=== PATIENT | female | born 1975 | race Caucasian/White ===

== ENCOUNTER 2023-07-13 10:42 | Inpatient (IN) ==
[2023-07-13 12:40] LABS: Basophils # (auto) 0.05 K/uL (0.00-0.20); Basophils % (auto) 0.6 %; Eosinophils # (auto) 0.33 K/uL (0.00-0.50); Hematocrit (blood only) 40.7 % (37.0-47.0); Immature Granulocytes # (auto) 0.02 K/uL (0.01-0.20); Immature Granulocytes % (auto) 0.2 %; Lymphocytes # (auto) 3.04 K/uL (1.20-3.40); Lymphocytes % (auto) 37.2 %; Mean Corpuscular Hemoglobin 31.5 pg (25.0-34.0); Mean Corpuscular Hgb Conc 34.4 g/dL (32.0-36.0); Mean Corpuscular Volume 91.7 fL (80.0-100.0); Mean Platelet Volume 10.5 fL (9.4-12.4); Monocytes # (auto) 0.45 K/uL (0.11-0.59); Monocytes % (auto) 5.5 %; Neutrophils # (auto) 4.28 K/uL (1.40-6.50); Neutrophils % (auto) 52.5 %; Platelet Count 258 K/uL (130-400); RDW Coefficient of Variation 12.1 % (11.5-14.5); RDW Standard Deviation 40.7 fL (36.4-46.3); Red Blood Count 4.44 M/uL (4.20-5.40); White Blood Count 8.17 K/ul (4.8-10.8)
[2023-07-13 12:54] LABS: Alanine Aminotransferase 13 U/L (7-52); Albumin Globulin Ratio 1.8 (0.9-2); Albumin Level 5.2 gm/dl (3.4-5.0); Alkaline Phosphatase 46 U/L (34-104); Anion Gap 7 (3-11); Aspartate Aminotransferase 20 U/L (13-39); BUN Creatinine Ratio 18.7 (10-20); Bilirubin,Total 0.6 mg/dl (0.2-1.0); Blood Urea Nitrogen 14 mg/dl (6-23); Calcium 9.8 mg/dl (8.6-10.3); Carbon Dioxide 28 mmol/L (21-32); Chloride 107 mmol/L (98-107); Creatinine Clr Calc Pharmacy 71.5 ml/min; Est GFR (African American) 111.6 ml/min; Est GFR (Non-African American) 96.3 ml/min; Globulin 2.9 gm/dl (2.5-4.0); Glucose 94 mg/dl (70-99(Fasting)); Potassium 3.9 mmol/L (3.5-5.1); Sodium 142 mmol/L (136-145); Total Protein 8.1 gm/dl (6.0-8.3)
[2023-07-13 12:59] LABS: Troponin I High Sensitivity 20.1 pg/ml (0-14)
[2023-07-13 13:01] LABS: Partial Thromboplastin Ratio 0.9; Partial Thromboplastin Time 24.8 Seconds (21.0-31.0); Prothrombin Time 10.5 Seconds (9.0-12.0)
--- NOTE | 2023-07-13 13:05 | XRay Report ---
XR chest 1V not portable HISTORY: Chest pressure. Chest pain, nonspecific COMPARISON: None. FINDINGS: No pneumothorax. No pleural effusions. Old, healed right lateral seventh rib fracture. No a cute fractures identified. The lungs are clear. No evidence for pulmonary edema. The heart is normal in size. IMPRESSION: No acute process. ACT 112: Negative or not required by law. Electronically signed by: Fausto Ackemran M.D. 07/13/2023 1:04 PM
[2023-07-13] MEDS ORDERED: ASPIRIN 81 MG CHEW PO STA (15:33)
--- NOTE | 2023-07-13 16:40 | Emergency Department Note ---
Impression & Plan Chest pain, rule out acute myocardial infarction ED Provider Note NAME: GARRY JANE AGE: 47 SEX: F : 1975 ARRIVES VIA: Walk-In INFORMANT: Patient, ED PROVIDER(S): Yajaira Rebolledo MD CHIEF COMPLAINT: HPI: This is a 47-year-old man presenting for chest pain. Patient states that she has a family history of early cardiac disease including both parents having MIs in their early 60s. She states that she had a stress test done in and is otherwise negative. Since past , 4 days, she has had chest pressure in her anterior chest. She does report occasional sharp sensation as well. N onpleuritic. No leg swelling. No history of hormones or blood clots in the past. She reports episodes coming in waves, occasionally she will feel poorly normal otherwise she can have episodes without relation to exertion or rest. She had an EKG done at outside facility and was sent here for further evaluation. ROS: See above HPI for pertinent positives & negatives. A total of 10 systems reviewed and were otherwise negative. PAST MEDICAL HISTORY: See Below PAST SURGICAL HISTORY: See Below FAMILY HISTORY: See Below SOCIAL HISTORY: See Below HOME MEDICATIONS: See Below ALLERGIES: See Below VITALS: See Below PHYSICAL EXAMINATION: General: resting comfortably in no acute distress Head: Normocephalic and atraumatic Eyes: Normal inspection, extraocular muscles intact, no conjunctival pallor Ear, nose, throat: Normal external exam Neck: Normal range of motion Respiratory: Patient is in no respiratory distress, lungs clear to auscultation bilaterally Cardiovascular: RRR without murmur appreciated GI: soft, nontender, no guarding or rebound Extremities: pulses intact with good cap refills, no LE pitting edema or calf tenderness Neuro: The patient awake and alert, appropriately conversive,no focal decifits Skin: Warm, dry, and intact MEDICAL DECISION MAKING: This is a 47-year-old female presenting for chest pain. Patient is a previous smoker. She has family history of early MN. Patient EKG shows normal sinus rhythm at this time without ST segment elevation changes. Patient's troponin was sent at triage showing it is slightly elevated at 20. Based on her story as well as troponin elevation, will require further work-up. Patient will be admitted to hospitalist service for ACS rule out. Triage Nursing notes reviewed. Prior medical records reviewed Vital Signs: reviewed and remarkable for no significant abnormalities Differential diagnosis: ACS, stable results of angina ER treatment provided: See below Diagnostics interpreted by me: ECG: EKG reviewed by me showing a normal sinus rhythm ventricular rate 74, normal intervals, no ST segment elevation, no STEMI, no significant T wave inversions Cardiac Monitoring: An order was placed for continuous cardiac monitoring. The monitor shows a rate of 83 with a sinus rhythm Laboratory studies: As stated above and show below. Imaging studies: See below. Past Med/Surg History Medical History (Updated 07/13/23 @ 22:00 by Yajaira Rebolledo MD) Chest pain, rule out acute myocardial infarction Surgical History (Updated 07/13/23 @ 17:52 by JOEY Merrill) S/P RADHA (total abdominal hysterectomy) Family History (Updated 07/13/23 @ 17:51 by JOEY Merrill) Mother , at age 62 after experiencing an AMI Heart disease Father , at age 42 after experiencing an AMI Heart disease Other Coronary heart disease Social History Smoking Status: Former smoker Second Hand Exposure: No; Hx Alcohol Use: Yes Alcohol type: beer, wine and hard liquor Hx Substance Use: No Preferred Language: Kazakh Communication Ability: Effective Budget Examiner Required: No Beliefs That Will Affect Care: None Current Living Situation: Spouse and Family Other Information That Helps Us Care for You: No Feels Safe at Home: Yes Safety Concerns: Feels Safe At This Time Assistive Devices: Glasses, Hearing Aid - Bilateral and Other Assistive Devices Comment: Upper and lower partial Allergies Allergies Allergy/AdvReac Type Severity Reaction Status Date / Time codeine AdvReac Unknown Vomiting Unverified 07/13/23 16:20 Home Meds Home Medications Medication Instructions Recorded Confirmed No Known Home Medications 07/13/23 07/13/23 Results & Data (ED) Vital Signs Vital Signs - 24 hr 07/13/23 11:02 07/13/23 16:11 07/13/23 16:12 Temperature 36.6 C Temperature Source Temporal Artery Scan Pulse Rate 77 70 Pulse Rate [Apical] 73 Pulse Rhythm [Apical] Regular Respiratory Rate 18 15 Respiratory Effort / Characteristics Non-Labored Respiratory Depth Normal Blood Pressure 134/89 Blood Pressure [Right Arm] 141/80 H Blood Pressure Mean 104 Blood Pressure Mean [Right Arm] 100 Blood Pressure Position Sitting Pulse Oximetry 100 99 Oxygen Delivery Method Room Air Room Air Sepsis Recent Fever Within 48 Hours No Sepsis New/Unexplained Change in Mental Status No Sepsis Action Taken by Nursing No Action Required 07/13/23 17:14 Temperature Temperature Source Pulse Rate 77 Pulse Rate [Apical] Pulse Rhythm [Apical] Respiratory Rate 17 Respiratory Effort / Characteristics Respiratory Depth Blood Pressure Blood Pressure [Right Arm] Blood Pressure Mean Blood Pressure Mean [Right Arm] Blood Pressure Position Pulse Oximetry 95 Oxygen Delivery Method Room Air Sepsis Recent Fever Within 48 Hours Sepsis New/Unexplained Change in Mental Status Sepsis Action Taken by Nursing Laboratory Data 07/13/23 12:21 07/13/23 12:21 Lab Results 07/13/23 07/13/23 07/13/23 Range/Units 12:21 12:21 12:21 WBC 8.17 (4.8-10.8) K/ul RBC 4.44 (4.20-5.40) M/uL Hgb 14.0 (12.0-16.0) g/dl Hct 40.7 (37.0-47.0) % MCV 91.7 (80.0-100.0) fL MCH 31.5 (25.0-34.0) pg MCHC 34.4 (32.0-36.0) g/dL RDW Std Deviation 40.7 (36.4-46.3) fL RDW Coeff of Rodger 12.1 (11.5-14.5) % Plt Count 258 (130-400) K/uL MPV 10.5 (9.4-12.4) fL Immature Gran % (Auto) 0.2 % Neut % (Auto) 52.5 % Lymph % (Auto) 37.2 % George % (Auto) 5.5 % Eos % (Auto) 4.0 % Baso % (Auto) 0.6 % Neut # (Auto) 4.28 (1.40-6.50) K/uL Lymph # (Auto) 3.04 (1.20-3.40) K/uL George # (Auto) 0.45 (0.11-0.59) K/uL Eos # (Auto) 0.33 (0.00-0.50) K/uL Baso # (Auto) 0.05 (0.00-0.20) K/uL Immature Gran # (Auto) 0.02 (0.01-0.20) K/uL PT 10.5 (9.0-12.0) Seconds INR 1.0 (0.9-1.1) APTT 24.8 (21.0-31.0) Seconds PTT Ratio 0.9 Sodium 142 (136-145) mmol/L Potassium 3.9 (3.5-5.1) mmol/L Chloride 107 (98-107) mmol/L Carbon Dioxide 28 (21-32) mmol/L Anion Gap 7 (3-11) BUN 14 (6-23) mg/dl Creatinine 0.75 (0.6-1.2) mg/dl Est Cr Clr Drug Dosing 71.5 ml/min Est GFR ( Amer) 111.6 ml/min Est GFR (Non-Af Amer) 96.3 ml/min BUN/Creatinine Ratio 18.7 (10-20) Glucose 94 (70-99(Fasting)) mg/dl Calcium 9.8 (8.6-10.3) mg/dl Total Bilirubin 0.6 (0.2-1.0) mg/dl AST 20 (13-39) U/L ALT 13 (7-52) U/L Alkaline Phosphatase 46 (34-104) U/L Troponin I High Sens 20.1 H (0-14) pg/ml Total Protein 8.1 (6.0-8.3) gm/dl Albumin 5.2 H (3.4-5.0) gm/dl Globulin 2.9 (2.5-4.0) gm/dl Albumin/Globulin Ratio 1.8 (0.9-2) Triglycerides (0-150) mg/dl Cholesterol (0-200) mg/dl LDL Cholesterol, Calc mg/dl VLDL Cholesterol, Calc (0-30) mg/dl HDL Cholesterol mg/dl Cholesterol/HDL Ratio (0-5) Lipase (11-82) U/L 07/13/23 Range/Units 16:02 WBC (4.8-10.8) K/ul RBC (4.20-5.40) M/uL Hgb (12.0-16.0) g/dl Hct (37.0-47.0) % MCV (80.0-100.0) fL MCH (25.0-34.0) pg MCHC (32.0-36.0) g/dL RDW Std Deviation (36.4-46.3) fL RDW Coeff of Rodger (11.5-14.5) % Plt Count (130-400) K/uL MPV (9.4-12.4) fL Immature Gran % (Auto) % Neut % (Auto) % Lymph % (Auto) % George % (Auto) % Eos % (Auto) % Baso % (Auto) % Neut # (Auto) (1.40-6.50) K/uL Lymph # (Auto) (1.20-3.40) K/uL George # (Auto) (0.11-0.59) K/uL Eos # (Auto) (0.00-0.50) K/uL Baso # (Auto) (0.00-0.20) K/uL Immature Gran # (Auto) (0.01-0.20) K/uL PT (9.0-12.0) Seconds INR (0.9-1.1) APTT (21.0-31.0) Seconds PTT Ratio Sodium (136-145) mmol/L Potassium (3.5-5.1) mmol/L Chloride (98-107) mmol/L Carbon Dioxide (21-32) mmol/L Anion Gap (3-11) BUN (6-23) mg/dl Creatinine (0.6-1.2) mg/dl Est Cr Clr Drug Dosing ml/min Est GFR ( Amer) ml/min Est GFR (Non-Af Amer) ml/min BUN/Creatinine Ratio (10-20) Glucose (70-99(Fasting)) mg/dl Calcium (8.6-10.3) mg/dl Total Bilirubin (0.2-1.0) mg/dl AST (13-39) U/L ALT (7-52) U/L Alkaline Phosphatase (34-104) U/L Troponin I High Sens 9.8 D (0-14) pg/ml Total Protein (6.0-8.3) gm/dl Albumin (3.4-5.0) gm/dl Globulin (2.5-4.0) gm/dl Albumin/Globulin Ratio (0.9-2) Triglycerides 60 (0-150) mg/dl Cholesterol 236 H (0-200) mg/dl LDL Cholesterol, Calc 123 mg/dl VLDL Cholesterol, Calc 12 (0-30) mg/dl HDL Cholesterol 101 mg/dl Cholesterol/HDL Ratio 2.3 (0-5) Lipase 61 (11-82) U/L Administered Medications Heparin Sodium (Porcine) (Heparin Sod 5,000 Unit/0.5 Ml Vial) 5,000 units SQ Q12 ROSY Stop: 08/12/23 20:59 Last Admin: 07/13/23 20:12 Dose: 5,000 units Documented By: SRS Discontinued Medications Aspirin (Aspirin 81 Mg Chew) 324 mg PO NOW STA Stop: 07/13/23 15:34 Last Admin: 07/13/23 17:08 Dose: 324 mg Documented By: ACC Nitroglycerin (Nitroglycerin Sl 0.4 Mg/Tab Tab) 0.4 mg SL NOW STA Stop: 07/13/23 16:47 Last Admin: 07/13/23 17:09 Dose: 0.4 mg Documented By: ACC Imaging Data Radiologist's Impression: Chest X-Ray 07/13/23 11:05 XR chest 1V not portable HISTORY: Chest pressure. Chest pain, nonspecific COMPARISON: None. FINDINGS: No pneumothorax. No pleural effusions. Old, healed right lateral seventh rib fracture. No acute fractures identified. The lungs are clear. No evidence for pulmonary edema. The heart is normal in size. IMPRESSION: No acute process. ACT 112: Negative or not required by law. Electronically signed by: Fausto Ackerman M.D. 07/13/2023 1:04 PM Discharge Plan Visit Data Chief Complaint: Cardiac Assessment Stated Complaint: CHEST PRESSURE, REF BY DOC AFTER EKG ED Provider: Yajaira Rebolledo Discharge Problem: Chest pain, rule out acute myocardial infarction Patient Disposition: Admitted As Inpatient Discharge Instructions Interventions: ED Discharge Assessment Last Done: 07/13/23 17:50
[2023-07-13] MEDS ORDERED: NITROGLYCERIN SL 0.4 MG/TAB TAB SL STA (16:46)
[2023-07-13 16:53] LABS: Troponin I High Sensitivity 9.8 pg/ml (0-14)
[2023-07-13] MEDS ORDERED: ACETAMINOPHEN 325 MG TAB PO PRN (17:31)
[2023-07-13] MEDS ORDERED: MAGNESIUM HYDROXIDE SUSP 30 ML UDC PO PRN (17:31)
[2023-07-13] MEDS ORDERED: ONDANSETRON INJ 2 MG/ML 2 ML VIAL IV PRN (17:31)
[2023-07-13] MEDS ORDERED: POLYETHYLENE (MIRALAX) 17 GM PACK PO PRN (17:31)
[2023-07-13] MEDS ORDERED: ALUMINUM/MAGNESIUM SUSP 30 ML UDC PO PRN (17:31)
--- NOTE | 2023-07-13 17:46 | History & Physical Report ---
Date of Service July 13, 2023 Assessment & Plan (1) Chest pain, rule out acute myocardial infarction: Plan 47 year old presents with chest pain that started on and she describes it as "an elephant sitting on her chest" and it "takes her breath away". Was given ASA 324 and Nitro x1 in ED with immediate relief. Additional PMH includes hypothyroidism and RADHA, but does not take any daily medications. Significant Family history includes her father dying at 42 and Mom at 62 both from AMI. Was a previous smoker but quite 4 years ago. Had a stress test in 2019 which was normal and was seen by Dr. Saini in the past. Initial Troponin 20.1; repeat 9.8. Mg, Phos and lipid panel and ECHO pending. Patient drank 2 cups of coffee this morning, has not eaten anything. She denies current tobacco use, denies alcohol and recreational drug use. She denies any caffeine drinks other than coffee and no more than two cups per day. Will admit for cardiac work up. Admit to PCU for possible cath pending CARDS consult; will trend troponin and obtain ECHO. Nitro PRN and ECG in AM. Chest pain, rule out AMI: ECG NSR; per outpatient records; anterior lead changes compared to ECG in 2019 Troponin 20.1; repeat 9.8; trend Previous smoker quit 4 years ago Nitro given in ED with chest pain relief ASA 324 given in ED Significant FMH: father from an AMI at 42 y/o and mother at 62 y/o from a heart attack Stress test done in 2019; negative. ECHO ordered Cards Consult placed NPO for now ECG in AM and PRN Disposition: PCP: Dr. Sullivan Code status: Full Code VTE Prophylaxis: Heparin SQ I spent a total of 87 minutes coordinating, documenting, and providing care for this patient excluding time spent in the performance of separately billed services. All of the aforementioned completed while collaborating with the assigned attending physician for a full treatment plan. Please see their addendum for further details. History of Present Illness Chief Complaint: chest pain Primary Care Provider: Tristin Sullivan MD 47 year old presents with chest pain. Describes as constant, anterior chest pain that started on and she describes it as "an elephant sitting on her chest" and it "takes her breath away". Does not recall the time it actually started, but continued through Thursday. She was able to lay comfortably flat or on her right side. Some exertional SOB with movement but that has resolved since her arrival to ED. Was given ASA 324 and Nitro x1 in ED with immediate relief. Additional PMH includes hypothyroidism and RADHA, but does not take any daily medications. Significant Family history includes her father dying at 42 and Mom at 62 both from AMI. Was a previous smoker but quite 4 years ago. Had a stress test in 2019 which was normal and was seen by Dr. Saini in the past. Initial Troponin 20.1; repeat 9.8. Mg, Phos and lipid panel and ECHO pending. Patient drank 2 cups of coffee this morning, has not eaten anything. She denies current tobacco use, denies alcohol and recreational drug use. She denies any caffeine drinks other than coffee and no more than two cups per day. Pt is sitting upright in her hospital bed in no apparent distress. She is AAOx4 and able to answer all questions appropriately. She currently denies PATIÑO, dizziness, visual or auditory changes (has tinnitus at baseline), current chest pain or palpitations, SOB, abdominal pain or tenderness, recent falls or trauma. Will admit for cardiac work up. Admit to PCU for possible cath pending CARDS consult; will trend troponin and obtain ECHO. Nitro PRN and ECG in AM. Patient will be admitted for further evaluation and management. Please see A/P for further details. Allergies Allergy/AdvReac Type Severity Reaction Status Date / Time codeine AdvReac Unknown Vomiting Unverified 07/13/23 16:20 Home Medications Medication Instructions Recorded Confirmed Type No Known Home Medications 07/13/23 07/13/23 History Past Med/Surg History Medical History Chest pain, rule out acute myocardial infarction Surgical History S/P RADHA (total abdominal hysterectomy) Family History Mother , at age 62 after experiencing an AMI Heart disease Father , at age 42 after experiencing an AMI Heart disease Other Coronary heart disease Social History Smoking Status: Former smoker Second Hand Exposure: No; Hx Alcohol Use: Yes Alcohol type: beer, wine and hard liquor Hx Substance Use: No Preferred Language: Pashto Communication Ability: Effective [employer] Supervisor Required: No Beliefs That Will Affect Care: None Current Living Situation: Spouse and Family Other Information That Helps Us Care for You: No Feels Safe at Home: Yes Safety Concerns: Feels Safe At This Time Assistive Devices: None Assistive Devices Comment: Upper and lower partial Review of Systems Review of Systems: Neuro: (-) Falls, trauma, slurred speech HEENT: (-) PATIÑO, dizziness, dysphagia, visual or auditory changes CV: (+) CP, palpitations, (-) swelling Resp: (-) SOB GI: (-) appetite changes, N/V/D, bowel changes : (-) urinary changes Skin: (-) rashes Psych: (-) anxiety, depression Physical Exam Physical Exam: Neuro: AAOx4, PERRLA, no aphagia, memory changes, CNII-XII grossly intact HEENT: head normocephalic, moist mucus membranes CV: S1/S2, (-) M/G/R, (-) edema, cap refill < 3 seconds Resp: Lungs CTA in all murphy. On RA GI: Abdomen S/NT/ND, Ax4 bowel sounds, (-) CVA tenderness Musculoskeletal: 5/5 B/L UE strength, 5/5 B/L LE strength. No gait disturbance Skin: (-) rashes , (-) erythema. Psych: euthymic mood Results & Data Results & Data Vital Signs (Past 12 Hours) Vital Signs Temp Pulse Pulse Resp BP BP Pulse Ox 07/13/23 17:14 77 17 95 07/13/23 16:12 70 07/13/23 16:11 73 15 141/80 H 99 07/13/23 11:02 36.6 C 77 18 134/89 100 O2 Del Method 07/13/23 17:14 Room Air 07/13/23 16:12 07/13/23 16:11 Room Air 07/13/23 11:02 Room Air Laboratory Results Short CBC 07/13/23 Range/Units 12:21 WBC 8.17 (4.8-10.8) K/ul Hgb 14.0 (12.0-16.0) g/dl Hct 40.7 (37.0-47.0) % Plt Count 258 (130-400) K/uL BMP 07/13/23 12:21 Sodium 142 Potassium 3.9 Chloride 107 Carbon Dioxide 28 BUN 14 Creatinine 0.75 Glucose 94 Calcium 9.8 Liver Function 07/13/23 Range/Units 12:21 Total Bilirubin 0.6 (0.2-1.0) mg/dl AST 20 (13-39) U/L ALT 13 (7-52) U/L Alkaline Phosphatase 46 (34-104) U/L Albumin 5.2 H (3.4-5.0) gm/dl Diagnostic Findings Chest X-Ray 07/13/23 11:05 XR chest 1V not portable HISTORY: Chest pressure. Chest pain, nonspecific COMPARISON: None. FINDINGS: No pneumothorax. No pleural effusions. Old, healed right lateral seventh rib fracture. No acute fractures identified. The lungs are clear. No evidence for pulmonary edema. The heart is normal in size. IMPRESSION: No acute process. ACT 112: Negative or not required by law. Electronically signed by: Fausto Ackerman M.D. 07/13/2023 1:04 PM Code Status & VTE Plan Code Status Full Code in the event of cardiac or respiratory VTE Prophylaxis Plan VTE Prophylaxis will be ordered: Yes Supervising Physician Co-Signing Physician Notes Pt seen and examined by myself, Rebecca Alfred MD on the day of service. Care was coordinated with JOEY Meng. 47yoF with significant family cardiac Hx presenting with chest pain. States Dad at 42 from an SD, mom at 62 from an SD. States all mom's siblings eventually had pacemakers. Notes personal Hx of chest pain and palpitations for years. RRR on exam. Troponin elevated and downtrended. Pt received nitroglycerin which relieved her pain. Cardiology consulted- appreciate recs. Otherwise as above.
[2023-07-13 18:28] LABS: Chol HDL Ratio 2.3 (0-5)
[2023-07-13 19:33] LABS: Basophils # (auto) 0.05 K/uL (0.00-0.20); Basophils % (auto) 0.5 %; Eosinophils # (auto) 0.33 K/uL (0.00-0.50); Eosinophils % (auto) 3.3 %; Hematocrit (blood only) 35.8 % (37.0-47.0); Hemoglobin 12.3 g/dl (12.0-16.0); Immature Granulocytes # (auto) 0.02 K/uL (0.01-0.20); Immature Granulocytes % (auto) 0.2 %; Lymphocytes # (auto) 2.75 K/uL (1.20-3.40); Lymphocytes % (auto) 27.9 %; Mean Corpuscular Hemoglobin 31.7 pg (25.0-34.0); Mean Corpuscular Hgb Conc 34.4 g/dL (32.0-36.0); Mean Corpuscular Volume 92.3 fL (80.0-100.0); Mean Platelet Volume 10.3 fL (9.4-12.4); Monocytes # (auto) 0.49 K/uL (0.11-0.59); Neutrophils # (auto) 6.23 K/uL (1.40-6.50); Neutrophils % (auto) 63.1 %; Platelet Count 226 K/uL (130-400); RDW Coefficient of Variation 12.3 % (11.5-14.5); RDW Standard Deviation 41.6 fL (36.4-46.3); Red Blood Count 3.88 M/uL (4.20-5.40); White Blood Count 9.87 K/ul (4.8-10.8)
[2023-07-13 19:52] LABS: Albumin Globulin Ratio 2.1 (0.9-2); Albumin Level 4.6 gm/dl (3.4-5.0); BUN Creatinine Ratio 16.3 (10-20); Bilirubin,Total 0.6 mg/dl (0.2-1.0); Calcium 9.3 mg/dl (8.6-10.3); Est GFR (African American) 103.2 ml/min; Globulin 2.2 gm/dl (2.5-4.0); Magnesium 1.9 mg/dl (1.7-2.4); Potassium 3.9 mmol/L (3.5-5.1); Total Protein 6.8 gm/dl (6.0-8.3)
[2023-07-13 19:59] LABS: Troponin I High Sensitivity 7.2 pg/ml (0-14)
[2023-07-13] MEDS: HEPARIN SOD 5,000 UNIT/0.5 ML VIAL SQ SCH (20:12)
[2023-07-14 06:28] LABS: Hematocrit (blood only) 35.9 % (37.0-47.0); Hemoglobin 12.3 g/dl (12.0-16.0); Mean Corpuscular Hemoglobin 31.5 pg (25.0-34.0); Mean Corpuscular Hgb Conc 34.3 g/dL (32.0-36.0); Mean Corpuscular Volume 91.8 fL (80.0-100.0); Mean Platelet Volume 10.2 fL (9.4-12.4); Platelet Count 208 K/uL (130-400); RDW Coefficient of Variation 12.2 % (11.5-14.5); Red Blood Count 3.91 M/uL (4.20-5.40); White Blood Count 5.46 K/ul (4.8-10.8)
[2023-07-14 06:46] LABS: Albumin Level 4.3 gm/dl (3.4-5.0); BUN Creatinine Ratio 18.5 (10-20); Bilirubin,Total 0.7 mg/dl (0.2-1.0); Calcium 8.9 mg/dl (8.6-10.3); Creatinine Clr Calc Pharmacy 66.2 ml/min; Est GFR (African American) 101.7 ml/min; Est GFR (Non-African American) 87.7 ml/min; Globulin 2.2 gm/dl (2.5-4.0); Phosphorus 3.9 mg/dl (2.5-4.9); Potassium 4.2 mmol/L (3.5-5.1); Total Protein 6.5 gm/dl (6.0-8.3)
[2023-07-14 06:53] LABS: Troponin I High Sensitivity 3.6 pg/ml (0-14)
--- NOTE | 2023-07-14 07:28 | XRay Report ---
XR chest 1V portable HISTORY: 47 years-old Female Chest pain, nonspecific COMPARISON: 07/13/2023 TECHNIQUE: AP view of the chest FINDINGS: Cardiomediastinal and hilar silhouettes are within normal limits. No pneumothorax, pleural effusion, airspace consolidation or pulmonary edema. Bones appear grossly intact. IMPRESSION: No acute process. ACT 112: Negative or not required by law. The above report was generated using voice recognition software. It may contain grammatical, syntax o r spelling errors. Electronically signed by: Clifford Hook M.D. 07/14/2023 7:26 AM
--- NOTE | 2023-07-14 08:57 | Cardiology Consultation ---
Date of Consultation July 14, 2023 Assessment & Plan (1) Chest pain at rest: (2) Abnormal EKG: (3) Elevated troponin I level: (4) Family history of ischemic heart disease: (5) History of tobacco use: (6) PFO with atrial septal aneurysm: Plan 1. NPO for exercise stress echocardiography 2. Risk factor and lifestyle modification 3. Prevalence, clinical manifestations, and management of the incidentally detected PFO discussed. Supervising Physician Co-Signing Physician Notes Patient seen and examined at the bedside post stress testing. Denies any recurrent chest discomfort since admission. No dysrhythmia on telemetry. PE: VSS. Gen: NAD, AAO x3. Heart: Regular rhythm, normal S1-S2, no murmur. Lungs: Clear bilateral, no rales, rhonchi, wheeze. Extremities: No edema. A/P: Agree with above PA-C history, physical exam, assessment and plan with the following additions. Exercise stress echo negative for inducible ischemia at adequate workload. No anginal symptoms during exercise. Incidentally discovered small PFO with atrial septal aneurysm. Recommend low dose aspirin, 81mg daily. History of Present Illness Reason for Consultation: Chest pain, rule out ACS Requesting Physician: Re Garcia Attending Physician: Dr. Arya Larson MD History of Present Illness Mrs. Charissa Bowie is a very pleasant 47-year-old female who initially presented to Family Practice in [place] on July 13, 2023 for her annual physical examination. On intake, she describes to the nurse having chest pressure since . An EKG was obtained, revealing abnormal T wave in the anterior leads. Patient referred to the [facility] ER. In the ER she was given 1 sublingual nitroglycerin with prompt resolution of the chest discomfort. Patient has been chest pain-free thereafter. Patient describes the chest discomfort as a pressure that comes and goes, at times stabbing and associated with a feeling of taking her breath away, other times sensation as if there is an elephant sitting on the chest. Symptoms are not related to activity. Patient notes being active all the time; yesterday she walked fast on a treadmill for an hour, x4 miles, without difficulty. Past Medical and Surgical History: 1. History of hypothyroidism 2. Carpal tunnel syndrome 3. Tubal ligation 4. Total hysterectomy for endometriosis/cervical cancer, requiring transfusion of packed red blood cells at that time Family History: Mother with an IN at 62. Father with an IN at 42. Sister is alive and well with hypertension. Brother is alive and well without cardiac issues. Paternal grandfather in his late 80s or early 90s, cause unknown. Maternal grandmother and multiple siblings had pacemakers. Paternal grandmother with a CVA in his 80s. Paternal grandfather's history is unknown. Social History: Reformed smoker having quit 4 to 5 years ago after smoking up to 1 pack/day x 20 years. Social alcohol only. No illegal drug use. Employment: [employer]. , present for entire consultation. 2 children without cardiac issues. Allergies Allergy/AdvReac Type Severity Reaction Status Date / Time codeine AdvReac Unknown Vomiting Unverified 07/13/23 16:20 Home Medications Medication Instructions Recorded Confirmed Type No Known Home Medications 07/13/23 07/13/23 History Patient History Medical History Chest pain, rule out acute myocardial infarction Surgical History S/P RADHA (total abdominal hysterectomy) Family History Mother , at age 62 after experiencing an AMI Heart disease Father , at age 42 after experiencing an AMI Heart disease Other Coronary heart disease Social History Smoking Status: Former smoker Second Hand Exposure: No; Hx Alcohol Use: Yes Alcohol type: beer, wine and hard liquor Hx Substance Use: No Preferred Language: [place]ian Communication Ability: Effective Media Supervisor Required: No Beliefs That Will Affect Care: None Current Living Situation: Spouse and Family Other Information That Helps Us Care for You: No Feels Safe at Home: Yes Safety Concerns: Feels Safe At This Time Assistive Devices: Glasses, Hearing Aid - Bilateral and Other Assistive Devices Comment: Upper and lower partial Review of Systems Review of Systems: Complete Review of Systems: Constitutional: No change in weight. No night sweats. HEENT: No amaurosis fugax. Pulmonary: No history of COPD or asthma. No history of PE Cardiac: No history of IN, CHF, arrhythmia, heart murmur, rheumatic fever, or scarlet fever. GI/Abd: No dysphagia. No GERD. No melana or hematochezia. No liver or kidney problems. Vascular: No history of carotid disease, AAA, or claudication. Hematologic: Required transfusion of 4 units packed red blood cells, age 35 Musculoskeletal: Arthritis. Carpal tunnel. Skin: Negative. Neurologic: No history of TIA or CVA. No history of seizure. Female : See above. Endocrine: No history of diabetes. Complete Review of Systems is as stated above, negative, noncontributory Physical Exam Physical Exam: General: A&Ox3. NAD. HENT: Normocephalic. Atraumatic. Skin: Multiple tattoos Eyes: PER. Conjunctiva pink, sclera clear. Neck: No carotid bruits. No JVD. Heart: RRR. Soft systolic murmur at lower left sternal border. No rub No gallop. Lungs: Clear to auscultation. Abdomen: +BS. Extremities: No clubbing, cyanosis, or edema. Limited neurological examination is without focal deficits. Pulses: radial=2/4, posterior tibial=2/4. Results & Data Vital Signs (Past 12 Hours) Vital Signs Temp Pulse Pulse Resp BP BP Pulse Ox 07/14/23 07:58 36.6 C 62 17 102/66 99 07/14/23 07:09 62 07/14/23 04:03 37 C 57 L 12 106/64 99 07/13/23 23:11 36.6 C 58 L 17 112/68 98 07/13/23 22:46 55 L O2 Del Method 07/14/23 07:58 Room Air 07/14/23 07:09 07/14/23 04:03 Room Air 07/13/23 23:11 Room Air 07/13/23 22:46 Laboratory Results Cardiac Enzymes 07/13/23 07/13/23 07/13/23 Range/Units 12:21 16:02 19:09 AST 20 (13-39) U/L Troponin I High Sens 20.1 H 9.8 D 6.8 (0-14) pg/ml 07/13/23 07/14/23 07/14/23 Range/Units 19:09 00:53 05:56 AST 16 14 (13-39) U/L Troponin I High Sens 7.2 4.3 3.6 (0-14) pg/ml 07/14/23 Range/Units 05:56 AST (13-39) U/L Troponin I High Sens 3.7 (0-14) pg/ml Coagulation 07/13/23 Range/Units 12:21 PT 10.5 (9.0-12.0) Seconds APTT 24.8 (21.0-31.0) Seconds Lipids 07/13/23 Range/Units 16:02 Triglycerides 60 (0-150) mg/dl Cholesterol 236 H (0-200) mg/dl HDL Cholesterol 101 mg/dl Cholesterol/HDL Ratio 2.3 (0-5) CBC 07/13/23 07/13/23 07/14/23 Range/Units 12:21 19:09 05:56 WBC 8.17 9.87 5.46 (4.8-10.8) K/ul RBC 4.44 3.88 L 3.91 L (4.20-5.40) M/uL Hgb 14.0 12.3 12.3 (12.0-16.0) g/dl Hct 40.7 35.8 L 35.9 L (37.0-47.0) % Plt Count 258 226 208 (130-400) K/uL Neut # (Auto) 4.28 6.23 (1.40-6.50) K/uL Lymph # (Auto) 3.04 2.75 (1.20-3.40) K/uL Trinity # (Auto) 0.45 0.49 (0.11-0.59) K/uL Eos # (Auto) 0.33 0.33 (0.00-0.50) K/uL Baso # (Auto) 0.05 0.05 (0.00-0.20) K/uL Comprehensive Metabolic Panel 07/13/23 07/13/23 07/14/23 Range/Units 12:21 19:09 05:56 Sodium 142 138 141 (136-145) mmol/L Potassium 3.9 3.9 4.2 (3.5-5.1) mmol/L Chloride 107 105 108 H (98-107) mmol/L Carbon Dioxide 28 26 27 (21-32) mmol/L BUN 14 13 15 (6-23) mg/dl Creatinine 0.75 0.80 0.81 (0.6-1.2) mg/dl Glucose 94 141 H 89 (70-99(Fasting)) mg/dl Calcium 9.8 9.3 8.9 (8.6-10.3) mg/dl AST 20 16 14 (13-39) U/L ALT 13 11 10 (7-52) U/L Alkaline Phosphatase 46 46 39 (34-104) U/L Total Protein 8.1 6.8 6.5 (6.0-8.3) gm/dl Albumin 5.2 H 4.6 4.3 (3.4-5.0) gm/dl Intake and Output 07/13/23 07/14/23 07/14/23 22:59 06:59 14:59 Other: Other Intake Source NPO # Unmeasured Voids 2 Weight 50.6 kg 50.7 kg Weight Measurement Method Built in Bedscale Standing Scale Diagnostic Findings EKG on presentation revealed normal sinus rhythm at 74 bpm with rightward axis. High-sensitivity troponin I minimally elevated on presentation at 20.1 pg/mL then normal x 6 (9.8 -> 6.8 -> 7.2 -> 4.3 -> 3.6 -> 3.7) EKG this morning revealed sinus bradycardia at 55 bpm with rightward axis Admission PA and lateral chest x-ray showed an old healed right lateral seventh rib fracture. No acute process July 14, 2023 TTE Interpretation Summary ([facility], Dr. Gruber): No comparison study available. Technically adequate. Normal LV systolic function. Ejection fraction 60 to 65%. Normal LV wall motion. Atrial septal aneurysm. Injection of contrast documented an interatrial shunt. Findings suggest small PFO. No significant valvular pathology. Telemetry: Sinus throughout, ranging from the 50's to the 80's.
[2023-07-14] MEDS: HEPARIN SOD 5,000 UNIT/0.5 ML VIAL SQ SCH (09:14)
[2023-07-14 13:24] LABS: D Dimer 270 ug/L FEU (0-500)
--- NOTE | 2023-07-14 14:33 | Electrocardiogram Report ---
Test Reason : Blood Pressure : / mmHG Vent. Rate : 074 BPM Atrial Rate : 074 BPM P-R Int : 154 ms QRS Dur : 084 ms QT Int : 414 ms P-R-T Axes : 084 101 054 degrees QTc Int : 459 ms Normal sinus rhythm Rightward axis Borderline ECG No previous ECGs available Confirmed by Chin Keyes ([id number]) on 07/14/2023 2:33:14 PM Referred By: REFERRED SELF Confirmed By:Chin Keyes
--- NOTE | 2023-07-14 15:48 | Electrocardiogram Report ---
Test Reason : Blood Pressure : / mmHG Vent. Rate : 055 BPM Atrial Rate : 055 BPM P-R Int : 166 ms QRS Dur : 082 ms QT Int : 452 ms P-R-T Axes : 081 097 076 degrees QTc Int : 432 ms Sinus bradycardia Rightward axis Borderline ECG When compared with ECG of 13-JUL-2023 12:19, (unconfirmed) No significant change was found Confirmed by Chin Keyes ([id number]) on 07/14/2023 3:48:13 PM Referred By: REFERRED SELF Confirmed By:Chin Keyes
== END 2023-07-14 15:10 | disposition home or self-care (01) | DRG 313 ==
LOC: ED 10:42 → EDINP 17:31 → SUATTDRO 17:31 → 4W 17:50